=== PATIENT | female | born 1980 | race Caucasian/White ===

== ENCOUNTER 2020-01-09 19:06 | Inpatient (IN) | payer MEDICAID, OTHER ==
[~2020-01-09] VITALS: Ht 175.3 cm; Wt 85.9 kg
--- NOTE | 2020-01-09 19:14 | NUR ---
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
--- NOTE | 2020-01-09 19:28 | NUR ---
PT A&OX4, RESP EVEN & UNLABORED, PT JAUNDICED. STATES "I WAS GETTING BETTER ABOUT THE DRINKING THING, BUT THEN OUR FUR BABY ". A BEER OR TWO A DAY. HAD A SHOT (ETOH) TODAY. DENIES DX HEPATITIS, ABD PAIN, N/V. HX PANCREATITIS, "INFLAMMED LIVER", IRREG MENSTRUAL PERIODS . LAST ORAL INTAKE: FOOD YESTERDAY, FLUID INTAKE TODAY. LMP: 2 MONTHS AGO, "I'M LATE"
[2020-01-09] MEDS ORDERED: TRAZ-96 PO (19:46)
[2020-01-09 20:06] LABS: BASOPHILS # (AUTO) 0.03 x10^3/uL (0-0.1); BASOPHILS % (AUTO) 0 % (0-1); EOSINOPHILS # (AUTO) 0.11 x10^3/uL (0-0.4); EOSINOPHILS % (AUTO) 1 % (1-7); LYMPHOCYTES # (AUTO) 0.79 x10^3/uL (1-3.4); LYMPHOCYTES % (AUTO) 9 % (22-44); MD NO; MEAN CORPUSCULAR HEMOGLOBIN 34.2 pg (27.0-34.8); MEAN PLATELET VOLUME 8.8 fL (7.4-10.4); MONOCYTES # (AUTO) 0.64 x10^3/uL (0.2-0.8); MONOCYTES % (AUTO) 8 % (2-9); NEUTROPHILS # (AUTO) 6.92 x10^3/uL (1.8-6.8); NEUTROPHILS % (AUTO) 82 % (42-75); PLATELET COUNT 165 x10^3/uL (130-400); RED BLOOD COUNT 4.14 x10^6/uL (3.82-5.3); RED CELL DISTRIBUTION WIDTH 17.2 % (9.6-15.2)
[2020-01-09 20:20] LABS: ALANINE AMINOTRANSFERASE 85 U/L (12-78); ALBUMIN 1.8 g/dL (3.4-5.0); ANION GAP 16 mmol/L (5-15); CALCIUM 8.5 mg/dL (8.5-10.1); CHLORIDE 91 mmol/L (98-107)
[2020-01-09 20:26] LABS: ALKALINE PHOSPHATASE 299 U/L (45-117); BILIRUBIN,INDIRECT 4.1 mg/dL (0.0-2.0)
[2020-01-09 20:30] LABS: CREATININE 0.79 mg/dL (0.55-1.02); TOTAL PROTEIN 6.9 g/dL (6.4-8.2)
[2020-01-09 20:39] LABS: BILIRUBIN, DIRECT 20.8 mg/dL (0.1-0.2); BILIRUBIN,TOTAL 24.9 mg/dL (0.2-1.0)
--- NOTE | 2020-01-09 20:39 | NUR ---
PT WAS AMBULATORY TO & FROM [facility] W/OUT INCIDENT; GAIT STEADY. VOIDED BROWNISH SPECIMEN PROVIDED.
--- NOTE | 2020-01-09 20:48 | NUR ---
CALLED CT DEPT RE: 22G IV. PER LUZ MARINA, IV OK FOR CURRENTLY ORDERED CT.
[2020-01-09] MEDS ORDERED: POTASSIUM CHLORIDE 40 MEQ in SODIUM CHLORIDE 0.9% 1,000 ML IV ONE ×2 (20:51→22:11)
[2020-01-09] MEDS ORDERED: POTASSIUM CHLORIDE 20 MEQ TAB.ER.PRT PO ONE (21:00)
--- NOTE | 2020-01-09 21:04 | NUR ---
PT REPORT TO [facility]. PT CARE TRANSFERRED.
[2020-01-09] MEDS ORDERED: NS + 40MEQ KCL 1,000 ML IV ONE (21:19)
[2020-01-09] MEDS ORDERED: POTASSIUM CHLORIDE 20 MEQ TAB.ER.PRT ONE (21:20)
[2020-01-09] MEDS ORDERED: OMNIPAQUE 350 MG/ML, 100ML BOTTLE ONE (21:20)
[2020-01-09] MEDS ORDERED: SODIUM CHLORIDE FLUSH 10ML SYR IVF PRN (22:30)
[2020-01-09 22:35] LABS: INTERNATIONAL NORMALIZED RATIO 1.64 (0.93-1.1)
[2020-01-09 23:46] VITALS: BP 117/82
[2020-01-09] MEDS: CEFTRIAXONE PMX 1GM/50ML 50 ML IV SCH (23:54)
[2020-01-10] MEDS ORDERED: THIAMINE 200 MG in SODIUM CHLORIDE 0.9% 50 ML IV ONE
[2020-01-10 00:24] VITALS: BP 119/80
[2020-01-10 01:06] LABS: AMPHETAMINE SCREEN, URINE Negative (Negative); BARBITURATE SCREEN, URINE Negative (Negative); BENZODIAZEPINE SCREEN, URINE Negative (Negative); CANNABINOID SCREEN, URINE Positive (Negative); COCAINE SCREEN, URINE Negative (Negative); METHADONE SCREEN, URINE Negative (Negative); OPIATE SCREEN, URINE Negative (Negative)
[2020-01-10] MEDS ORDERED: NICOTINE 14MG/24 HR PATCH.TD24 ONE (01:28)
[2020-01-10] MEDS ORDERED: TRAZODONE 50MG TABLET ONE (01:28)
[2020-01-10] MEDS: TRAZODONE 50MG TABLET PO PRN ×2 (01:30→21:52)
[2020-01-10] MEDS: NICOTINE 14MG/24 HR PATCH.TD24 TD SCH (01:30)
[2020-01-10] MEDS ORDERED: DIAZEPAM 10 MG TABLET PO SCH (02:30)
[2020-01-10] MEDS ORDERED: LORazepam 2 MG/ML, 1ML IV PRN ×4 (02:30)
[2020-01-10] MEDS ORDERED: FOLIC ACID 1 MG TABLET PO ONE (02:30)
[2020-01-10 05:14] LABS: BASOPHILS # (AUTO) 0.02 x10^3/uL (0-0.1); BASOPHILS % (AUTO) 0 % (0-1); EOSINOPHILS # (AUTO) 0.06 x10^3/uL (0-0.4); EOSINOPHILS % (AUTO) 1 % (1-7); LYMPHOCYTES # (AUTO) 1.57 x10^3/uL (1-3.4); LYMPHOCYTES % (AUTO) 20 % (22-44); MD NO; MEAN CORPUSCULAR HEMOGLOBIN 34.3 pg (27.0-34.8); MEAN PLATELET VOLUME 9.1 fL (7.4-10.4); MONOCYTES # (AUTO) 0.59 x10^3/uL (0.2-0.8); MONOCYTES % (AUTO) 7 % (2-9); NEUTROPHILS # (AUTO) 5.74 x10^3/uL (1.8-6.8); NEUTROPHILS % (AUTO) 72 % (42-75); PLATELET COUNT 140 x10^3/uL (130-400); RED BLOOD COUNT 3.42 x10^6/uL (3.82-5.3); RED CELL DISTRIBUTION WIDTH 16.8 % (9.6-15.2)
[2020-01-10 05:25] LABS: ALBUMIN 1.5 g/dL (3.4-5.0); ANION GAP 10 mmol/L (5-15); CHLORIDE 96 mmol/L (98-107)
[2020-01-10 05:29] LABS: ALANINE AMINOTRANSFERASE 73 U/L (12-78); ALKALINE PHOSPHATASE 240 U/L (45-117)
[2020-01-10 05:32] LABS: CREATININE 0.71 mg/dL (0.55-1.02)
[2020-01-10 05:33] LABS: TOTAL PROTEIN 5.8 g/dL (6.4-8.2)
[2020-01-10 05:34] LABS: BILIRUBIN,TOTAL 20.9 mg/dL (0.2-1.0)
[2020-01-10 07:40] VITALS: BP 114/73
[2020-01-10] MEDS: MULTIVITAMINS/MINERALS TABLET PO SCH (08:35)
[2020-01-10] MEDS: DIAZEPAM 10 MG TABLET PO SCH ×3 (11:05→22:34)
[2020-01-10] MEDS ORDERED: POTASSIUM CHLORIDE 20 MEQ TAB.ER.PRT ONE (11:07)
[2020-01-10] MEDS: POTASSIUM CHLORIDE 20 MEQ TAB.ER.PRT PO SCH ×2 (11:08→17:21)
[2020-01-10 12:35] VITALS: BP 127/82
[2020-01-10] MEDS: POTASSIUM CHLORIDE 20 MEQ in SODIUM CHLORIDE 0.9% 1,000 ML IV SCH (14:42)
[2020-01-10 18:41] VITALS: BP 119/78
[2020-01-10] MEDS: CEFTRIAXONE PMX 1GM/50ML 50 ML IV SCH (23:59)
[2020-01-11 01:34] VITALS: BP 110/72
[2020-01-11] MEDS: NICOTINE 14MG/24 HR PATCH.TD24 TD SCH (01:56)
[2020-01-11] MEDS ORDERED: DIAZEPAM 5 MG TABLET PO SCH (02:30)
[2020-01-11 05:02] LABS: BASOPHILS # (AUTO) 0.02 x10^3/uL (0-0.1); BASOPHILS % (AUTO) 0 % (0-1); EOSINOPHILS # (AUTO) 0.02 x10^3/uL (0-0.4); EOSINOPHILS % (AUTO) 0 % (1-7); LYMPHOCYTES % (AUTO) 20 % (22-44); MD NO; MEAN CORPUSCULAR HEMOGLOBIN 34.3 pg (27.0-34.8); MEAN CORPUSCULAR HGB CONC 33.7 g/dL (32.4-35.8); MEAN PLATELET VOLUME 9.3 fL (7.4-10.4); MONOCYTES # (AUTO) 0.45 x10^3/uL (0.2-0.8); MONOCYTES % (AUTO) 6 % (2-9); NEUTROPHILS # (AUTO) 5.99 x10^3/uL (1.8-6.8); NEUTROPHILS % (AUTO) 74 % (42-75); PLATELET COUNT 138 x10^3/uL (130-400); RED BLOOD COUNT 3.66 x10^6/uL (3.82-5.3); RED CELL DISTRIBUTION WIDTH 17.5 % (9.6-15.2)
[2020-01-11 05:09] LABS: ALBUMIN 1.6 g/dL (3.4-5.0); ANION GAP 8 mmol/L (5-15); CALCIUM 8.2 mg/dL (8.5-10.1); CHLORIDE 96 mmol/L (98-107)
[2020-01-11 05:13] LABS: ALANINE AMINOTRANSFERASE 72 U/L (12-78); ALKALINE PHOSPHATASE 249 U/L (45-117)
[2020-01-11] MEDS: POTASSIUM CHLORIDE 20 MEQ in SODIUM CHLORIDE 0.9% 1,000 ML IV SCH ×2 (05:15→18:01)
[2020-01-11 05:17] LABS: CREATININE 0.75 mg/dL (0.55-1.02); TOTAL PROTEIN 6.1 g/dL (6.4-8.2)
[2020-01-11] MEDS: DIAZEPAM 5 MG TABLET PO SCH ×4 (05:18→22:54)
[2020-01-11 05:19] LABS: BILIRUBIN,TOTAL 23.7 mg/dL (0.2-1.0)
[2020-01-11 06:51] VITALS: BP 105/67
[2020-01-11] MEDS: MULTIVITAMINS/MINERALS TABLET PO SCH (10:27)
[2020-01-11] MEDS: THIAMINE 100 MG in DEXTROSE 5% 50 ML IVPB SCH (10:29)
[2020-01-11] MEDS: POTASSIUM CHLORIDE 20 MEQ TAB.ER.PRT PO SCH ×2 (10:29→16:58)
[2020-01-11] MEDS: PENTOXIFYLLINE 400 MG TABLET.ER PO SCH ×3 (12:00→20:45)
[2020-01-11 12:50] VITALS: BP 114/78
[2020-01-11] MEDS ORDERED: POTASSIUM CHLORIDE 20 MEQ TAB.ER.PRT PO SCH (17:00)
[2020-01-11 17:23] LABS: ANA SCREEN NEGATIVE (Negative)
[2020-01-11 18:39] VITALS: BP 127/85
[2020-01-12] MEDS: CEFTRIAXONE PMX 1GM/50ML 50 ML IV SCH (00:07)
[2020-01-12 01:02] VITALS: BP 132/93
[2020-01-12] MEDS: NICOTINE 14MG/24 HR PATCH.TD24 TD SCH (01:07)
[2020-01-12] MEDS: TRAZODONE 50MG TABLET PO PRN (02:16)
[2020-01-12 05:06] LABS: ALBUMIN 1.5 g/dL (3.4-5.0); ANION GAP 8 mmol/L (5-15); CHLORIDE 101 mmol/L (98-107)
[2020-01-12 05:09] LABS: ALANINE AMINOTRANSFERASE 59 U/L (12-78); ALKALINE PHOSPHATASE 220 U/L (45-117)
[2020-01-12 05:11] LABS: CREATININE 0.68 mg/dL (0.55-1.02); TOTAL PROTEIN 5.7 g/dL (6.4-8.2)
[2020-01-12 05:12] LABS: BILIRUBIN,TOTAL 23.8 mg/dL (0.2-1.0)
[2020-01-12 05:20] LABS: BASOPHILS # (AUTO) 0.01 x10^3/uL (0-0.1); BASOPHILS % (AUTO) 0 % (0-1); EOSINOPHILS % (AUTO) 1 % (1-7); LYMPHOCYTES # (AUTO) 1.43 x10^3/uL (1-3.4); LYMPHOCYTES % (AUTO) 13 % (22-44); MD NO; MEAN CORPUSCULAR HEMOGLOBIN 34.1 pg (27.0-34.8); MEAN CORPUSCULAR HGB CONC 33.2 g/dL (32.4-35.8); MEAN PLATELET VOLUME 9.5 fL (7.4-10.4); MONOCYTES # (AUTO) 0.79 x10^3/uL (0.2-0.8); MONOCYTES % (AUTO) 7 % (2-9); NEUTROPHILS % (AUTO) 78 % (42-75); PLATELET COUNT 124 x10^3/uL (130-400); RED BLOOD COUNT 3.43 x10^6/uL (3.82-5.3); RED CELL DISTRIBUTION WIDTH 17.3 % (9.6-15.2)
[2020-01-12] MEDS: DIAZEPAM 5 MG TABLET PO SCH ×4 (05:28→23:08)
[2020-01-12 07:20] VITALS: BP 119/80
[2020-01-12] MEDS: POTASSIUM CHLORIDE 20 MEQ in SODIUM CHLORIDE 0.9% 1,000 ML IV SCH (09:14)
[2020-01-12] MEDS: THIAMINE 100 MG in DEXTROSE 5% 50 ML IVPB SCH (09:14)
[2020-01-12] MEDS: PENTOXIFYLLINE 400 MG TABLET.ER PO SCH ×3 (09:16→20:43)
[2020-01-12] MEDS: POTASSIUM CHLORIDE 20 MEQ TAB.ER.PRT PO SCH ×2 (09:16→17:02)
[2020-01-12] MEDS: MULTIVITAMINS/MINERALS TABLET PO SCH (09:16)
[2020-01-12] MEDS: LORazepam 2 MG/ML, 1ML IV PRN (09:39)
[2020-01-12] MEDS ORDERED: MAGNESIUM SULFATE PMX 2GM/50ML 50 ML IV ONE (10:00)
[2020-01-12 13:07] VITALS: BP 130/82
[2020-01-12 18:31] VITALS: BP 115/77
[2020-01-12] MEDS ORDERED: CALCIUM CARBONATE 500 MG TAB.CHEW ONE (19:12)
[2020-01-12] MEDS: CALCIUM CARBONATE 500 MG TAB.CHEW PO PRN (19:14)
[2020-01-12 20:23] LABS: MICROSCOPIC NOT IND
[2020-01-13] MEDS: CEFTRIAXONE PMX 1GM/50ML 50 ML IV SCH (00:10)
[2020-01-13] MEDS: NICOTINE 14MG/24 HR PATCH.TD24 TD SCH (00:10)
[2020-01-13 00:37] VITALS: BP 108/72
[2020-01-13] MEDS: CALCIUM CARBONATE 500 MG TAB.CHEW PO PRN (01:06)
[2020-01-13 05:01] LABS: BASOPHILS # (AUTO) 0.05 x10^3/uL (0-0.1); BASOPHILS % (AUTO) 0 % (0-1); EOSINOPHILS # (AUTO) 0.05 x10^3/uL (0-0.4); EOSINOPHILS % (AUTO) 1 % (1-7); LYMPHOCYTES # (AUTO) 1.53 x10^3/uL (1-3.4); LYMPHOCYTES % (AUTO) 15 % (22-44); MD NO; MEAN CORPUSCULAR HEMOGLOBIN 34.6 pg (27.0-34.8); MEAN CORPUSCULAR HGB CONC 33.4 g/dL (32.4-35.8); MEAN PLATELET VOLUME 9.5 fL (7.4-10.4); MONOCYTES # (AUTO) 0.86 x10^3/uL (0.2-0.8); MONOCYTES % (AUTO) 8 % (2-9); NEUTROPHILS # (AUTO) 7.96 x10^3/uL (1.8-6.8); NEUTROPHILS % (AUTO) 76 % (42-75); PLATELET COUNT 121 x10^3/uL (130-400); RED BLOOD COUNT 3.46 x10^6/uL (3.82-5.3); RED CELL DISTRIBUTION WIDTH 17.6 % (9.6-15.2)
[2020-01-13 05:16] LABS: ALANINE AMINOTRANSFERASE 52 U/L (12-78); ALBUMIN 1.5 g/dL (3.4-5.0); ALKALINE PHOSPHATASE 203 U/L (45-117); ANION GAP 7 mmol/L (5-15); CALCIUM 8.2 mg/dL (8.5-10.1); CHLORIDE 102 mmol/L (98-107)
[2020-01-13 05:18] LABS: CREATININE 0.64 mg/dL (0.55-1.02)
[2020-01-13 05:19] LABS: BILIRUBIN,TOTAL 24.7 mg/dL (0.2-1.0); TOTAL PROTEIN 5.5 g/dL (6.4-8.2)
[2020-01-13 07:28] VITALS: BP 102/69
[2020-01-13] MEDS: POTASSIUM CHLORIDE 20 MEQ TAB.ER.PRT PO SCH ×4 (09:00→20:33)
[2020-01-13] MEDS: PENTOXIFYLLINE 400 MG TABLET.ER PO SCH ×3 (09:21→20:34)
[2020-01-13] MEDS: MULTIVITAMINS/MINERALS TABLET PO SCH (09:21)
[2020-01-13] MEDS: THIAMINE 100 MG in DEXTROSE 5% 50 ML IVPB SCH (09:35)
[2020-01-13] MEDS: FOLIC ACID 1 MG TABLET PO SCH (10:53)
[2020-01-13] MEDS: ENOXAPARIN 40 MG/0.4 ML SQ SCH (10:53)
[2020-01-13 18:35] VITALS: BP 130/90
[2020-01-13] MEDS: TRAZODONE 50MG TABLET PO PRN (20:34)
[2020-01-14 00:36] VITALS: BP 127/75
[2020-01-14] MEDS: NICOTINE 14MG/24 HR PATCH.TD24 TD SCH (01:20)
[2020-01-14 04:42] LABS: BASOPHILS # (AUTO) 0.04 x10^3/uL (0-0.1); BASOPHILS % (AUTO) 0 % (0-1); EOSINOPHILS # (AUTO) 0.14 x10^3/uL (0-0.4); EOSINOPHILS % (AUTO) 1 % (1-7); LYMPHOCYTES # (AUTO) 1.59 x10^3/uL (1-3.4); LYMPHOCYTES % (AUTO) 13 % (22-44); MD NO; MEAN CORPUSCULAR HEMOGLOBIN 34.5 pg (27.0-34.8); MEAN CORPUSCULAR HGB CONC 33.2 g/dL (32.4-35.8); MEAN PLATELET VOLUME 9.9 fL (7.4-10.4); MONOCYTES # (AUTO) 1.09 x10^3/uL (0.2-0.8); MONOCYTES % (AUTO) 9 % (2-9); NEUTROPHILS # (AUTO) 9.04 x10^3/uL (1.8-6.8); NEUTROPHILS % (AUTO) 76 % (42-75); PLATELET COUNT 140 x10^3/uL (130-400); RED BLOOD COUNT 3.79 x10^6/uL (3.82-5.3); RED CELL DISTRIBUTION WIDTH 17.5 % (9.6-15.2)
[2020-01-14 04:43] LABS: CHLORIDE 102 mmol/L (98-107)
[2020-01-14 05:02] LABS: ALANINE AMINOTRANSFERASE 53 U/L (12-78); ALBUMIN 1.7 g/dL (3.4-5.0); ALKALINE PHOSPHATASE 227 U/L (45-117); ANION GAP 9 mmol/L (5-15)
[2020-01-14 05:10] LABS: CREATININE 0.78 mg/dL (0.55-1.02); TOTAL PROTEIN 6.3 g/dL (6.4-8.2)
[2020-01-14 05:11] LABS: BILIRUBIN,TOTAL 25.7 mg/dL (0.2-1.0)
[2020-01-14 07:01] VITALS: BP 138/87
[2020-01-14] MEDS: THIAMINE 100MG TABLET PO SCH (08:31)
[2020-01-14] MEDS: POTASSIUM CHLORIDE 20 MEQ TAB.ER.PRT PO SCH ×2 (08:31→15:40)
[2020-01-14] MEDS: MULTIVITAMINS/MINERALS TABLET PO SCH (08:31)
[2020-01-14] MEDS: PENTOXIFYLLINE 400 MG TABLET.ER PO SCH ×3 (08:31→21:11)
[2020-01-14] MEDS: FOLIC ACID 1 MG TABLET PO SCH (08:31)
[2020-01-14] MEDS: ENOXAPARIN 40 MG/0.4 ML SQ SCH (08:32)
[2020-01-14 12:06] VITALS: BP 109/70
[2020-01-14] MEDS: CALCIUM CARBONATE 500 MG TAB.CHEW PO PRN (12:14)
[2020-01-14 12:38] LABS: CLOSTRIDIUM DIFFICILE ANTIGEN NEGATIVE; CLOSTRIDIUM DIFFICILE TOXIN NEGATIVE (Negative)
[2020-01-14] MEDS ORDERED: POTASSIUM PHOSPHATE 44 MEQ in SODIUM CHLORIDE 0.9% 500 ML IV ONE (14:00)
[2020-01-14] MEDS: LACTOBACILLUS CHEW TABLET PO SCH ×2 (15:39→21:11)
[2020-01-14 18:53] VITALS: BP 128/82
[2020-01-14] MEDS: TRAZODONE 50MG TABLET PO PRN (21:11)
[2020-01-15 01:01] VITALS: BP 120/83
[2020-01-15] MEDS: NICOTINE 14MG/24 HR PATCH.TD24 TD SCH (01:33)
[2020-01-15] MEDS: CALCIUM CARBONATE 500 MG TAB.CHEW PO PRN (03:49)
[2020-01-15 04:22] LABS: ALANINE AMINOTRANSFERASE 42 U/L (12-78); ALBUMIN 1.5 g/dL (3.4-5.0); ANION GAP 10 mmol/L (5-15); CALCIUM 8.5 mg/dL (8.5-10.1); CHLORIDE 105 mmol/L (98-107)
[2020-01-15 04:28] LABS: BASOPHILS % (AUTO) 0 % (0-1); EOSINOPHILS # (AUTO) 0.16 x10^3/uL (0-0.4); EOSINOPHILS % (AUTO) 1 % (1-7); LYMPHOCYTES # (AUTO) 1.56 x10^3/uL (1-3.4); LYMPHOCYTES % (AUTO) 13 % (22-44); MD NO; MEAN CORPUSCULAR HEMOGLOBIN 34.5 pg (27.0-34.8); MEAN CORPUSCULAR HGB CONC 33.2 g/dL (32.4-35.8); MEAN PLATELET VOLUME 9.8 fL (7.4-10.4); MONOCYTES # (AUTO) 0.97 x10^3/uL (0.2-0.8); MONOCYTES % (AUTO) 8 % (2-9); NEUTROPHILS # (AUTO) 9.27 x10^3/uL (1.8-6.8); NEUTROPHILS % (AUTO) 78 % (42-75); PLATELET COUNT 131 x10^3/uL (130-400); RED BLOOD COUNT 3.56 x10^6/uL (3.82-5.3); RED CELL DISTRIBUTION WIDTH 17.9 % (9.6-15.2)
[2020-01-15 04:34] LABS: ALKALINE PHOSPHATASE 202 U/L (45-117)
[2020-01-15 05:22] LABS: CREATININE 0.73 mg/dL (0.55-1.02)
[2020-01-15 05:23] LABS: BILIRUBIN,TOTAL 22.9 mg/dL (0.2-1.0); TOTAL PROTEIN 5.5 g/dL (6.4-8.2)
[2020-01-15] MEDS: LACTOBACILLUS CHEW TABLET PO SCH ×4 (05:42→20:07)
[2020-01-15 06:46] VITALS: BP 123/74
[2020-01-15] MEDS ORDERED: POTASSIUM CHLORIDE 40 MEQ in SODIUM CHLORIDE 0.9% 500 ML IV ONE (09:00)
[2020-01-15] MEDS: THIAMINE 100MG TABLET PO SCH (09:00)
[2020-01-15] MEDS ORDERED: POTASSIUM CHLORIDE 20 MEQ TAB.ER.PRT PO ONE ×2 (09:00→11:00)
[2020-01-15] MEDS: MULTIVITAMINS/MINERALS TABLET PO SCH (09:34)
[2020-01-15] MEDS: FOLIC ACID 1 MG TABLET PO SCH (09:34)
[2020-01-15] MEDS: PENTOXIFYLLINE 400 MG TABLET.ER PO SCH ×3 (09:35→20:07)
[2020-01-15] MEDS: CEFTRIAXONE PMX 2GM/50ML 50 ML IV SCH (09:35)
[2020-01-15] MEDS: ENOXAPARIN 40 MG/0.4 ML SQ SCH (11:25)
[2020-01-15 12:51] VITALS: BP 132/91
[2020-01-15] MEDS: METRONIDAZOLE PMX 500MG/100ML 100 ML IV SCH ×2 (15:00→23:01)
[2020-01-15] MEDS: hydrOXyzine 10MG TABLET PO PRN ×2 (15:01→20:06)
[2020-01-15] MEDS: SODIUM CHLORIDE 0.9% 1,000 ML IV SCH (15:01)
[2020-01-15 19:36] VITALS: BP 122/84
[2020-01-15] MEDS: TRAZODONE 50MG TABLET PO PRN (20:06)
[2020-01-16 01:18] VITALS: BP 123/86
[2020-01-16] MEDS: NICOTINE 14MG/24 HR PATCH.TD24 TD SCH (01:23)
[2020-01-16] MEDS: SODIUM CHLORIDE 0.9% 1,000 ML IV SCH (04:15)
[2020-01-16] MEDS: LACTOBACILLUS CHEW TABLET PO SCH ×4 (05:07→20:09)
[2020-01-16 06:20] VITALS: BP 109/70
[2020-01-16] MEDS: METRONIDAZOLE PMX 500MG/100ML 100 ML IV SCH ×3 (07:21→23:09)
[2020-01-16] MEDS: MULTIVITAMINS/MINERALS TABLET PO SCH (08:25)
[2020-01-16] MEDS: THIAMINE 100MG TABLET PO SCH (08:26)
[2020-01-16] MEDS: PENTOXIFYLLINE 400 MG TABLET.ER PO SCH ×3 (08:26→20:09)
[2020-01-16] MEDS: FOLIC ACID 1 MG TABLET PO SCH (08:26)
[2020-01-16] MEDS: CEFTRIAXONE PMX 2GM/50ML 50 ML IV SCH (08:26)
[2020-01-16 09:08] LABS: BASOPHILS # (AUTO) 0.05 x10^3/uL (0-0.1); BASOPHILS % (AUTO) 1 % (0-1); EOSINOPHILS # (AUTO) 0.05 x10^3/uL (0-0.4); EOSINOPHILS % (AUTO) 1 % (1-7); LYMPHOCYTES # (AUTO) 1.07 x10^3/uL (1-3.4); LYMPHOCYTES % (AUTO) 11 % (22-44); MD NO; MEAN CORPUSCULAR HEMOGLOBIN 34.6 pg (27.0-34.8); MEAN CORPUSCULAR HGB CONC 33.1 g/dL (32.4-35.8); MEAN PLATELET VOLUME 9.2 fL (7.4-10.4); MONOCYTES # (AUTO) 0.99 x10^3/uL (0.2-0.8); MONOCYTES % (AUTO) 10 % (2-9); NEUTROPHILS # (AUTO) 7.95 x10^3/uL (1.8-6.8); NEUTROPHILS % (AUTO) 79 % (42-75); PLATELET COUNT 142 x10^3/uL (130-400); RED BLOOD COUNT 3.55 x10^6/uL (3.82-5.3); RED CELL DISTRIBUTION WIDTH 17.5 % (9.6-15.2)
[2020-01-16 09:29] LABS: CREATININE 0.73 mg/dL (0.55-1.02); TOTAL PROTEIN 5.3 g/dL (6.4-8.2)
[2020-01-16 09:33] LABS: ANION GAP 8 mmol/L (5-15); CALCIUM 8.6 mg/dL (8.5-10.1); CHLORIDE 107 mmol/L (98-107)
[2020-01-16 09:34] LABS: ALANINE AMINOTRANSFERASE 37 U/L (12-78); ALBUMIN 1.4 g/dL (3.4-5.0); ALKALINE PHOSPHATASE 192 U/L (45-117)
[2020-01-16 09:35] LABS: BILIRUBIN,TOTAL 23.1 mg/dL (0.2-1.0)
[2020-01-16] MEDS: ENOXAPARIN 40 MG/0.4 ML SQ SCH (11:03)
[2020-01-16 12:05] VITALS: BP 98/67
[2020-01-16] MEDS ORDERED: POTASSIUM CHLORIDE 40 MEQ in SODIUM CHLORIDE 0.9% 500 ML IV ONE (14:30)
[2020-01-16] MEDS ORDERED: POTASSIUM CHLORIDE 20 MEQ TAB.ER.PRT PO ONE ×2 (14:30→16:30)
[2020-01-16 19:00] VITALS: BP 120/81
[2020-01-16] MEDS: TRAZODONE 50MG TABLET PO PRN (20:09)
[2020-01-16] MEDS: hydrOXyzine 10MG TABLET PO PRN (20:10)
[2020-01-17] MEDS: NICOTINE 14MG/24 HR PATCH.TD24 TD SCH (00:45)
[2020-01-17 02:00] VITALS: BP 126/84
[2020-01-17] MEDS: LACTOBACILLUS CHEW TABLET PO SCH ×4 (06:26→19:57)
[2020-01-17] MEDS: METRONIDAZOLE PMX 500MG/100ML 100 ML IV SCH ×3 (06:27→22:43)
[2020-01-17 06:30] VITALS: BP 112/74
[2020-01-17] MEDS: hydrOXyzine 10MG TABLET PO PRN ×3 (06:34→19:57)
[2020-01-17] MEDS: PENTOXIFYLLINE 400 MG TABLET.ER PO SCH ×3 (08:46→19:57)
[2020-01-17] MEDS: FOLIC ACID 1 MG TABLET PO SCH (08:46)
[2020-01-17] MEDS: THIAMINE 100MG TABLET PO SCH (08:46)
[2020-01-17] MEDS: CEFTRIAXONE PMX 2GM/50ML 50 ML IV SCH (08:47)
[2020-01-17] MEDS: MULTIVITAMINS/MINERALS TABLET PO SCH (08:47)
[2020-01-17 10:24] LABS: CALCIUM 8.5 mg/dL (8.5-10.1); CHLORIDE 104 mmol/L (98-107)
[2020-01-17 10:35] LABS: ANION GAP 6 mmol/L (5-15); CREATININE 0.76 mg/dL (0.55-1.02)
[2020-01-17] MEDS: ENOXAPARIN 40 MG/0.4 ML SQ SCH (10:38)
[2020-01-17] MEDS ORDERED: POTASSIUM CHLORIDE 80 MEQ in SODIUM CHLORIDE 0.9% 1,000 ML IV ONE (10:54)
[2020-01-17] MEDS ORDERED: POTASSIUM CHLORIDE 40 MEQ in SODIUM CHLORIDE 0.9% 500 ML IV ONE (11:00)
[2020-01-17] MEDS: POTASSIUM CHLORIDE 20 MEQ TAB.ER.PRT PO SCH ×2 (11:08→16:18)
[2020-01-17 12:10] VITALS: BP 118/78
[2020-01-17] MEDS ORDERED: POTASSIUM CHLORIDE 20 MEQ TAB.ER.PRT PO SCH (17:00)
[2020-01-17 18:36] VITALS: BP 117/81
[2020-01-17] MEDS: TRAZODONE 50MG TABLET PO PRN (19:57)
[2020-01-17] MEDS: CALCIUM CARBONATE 500 MG TAB.CHEW PO PRN (22:51)
[2020-01-18] MEDS: NICOTINE 14MG/24 HR PATCH.TD24 TD SCH ×2 (01:07→23:39)
[2020-01-18 01:10] VITALS: BP 112/76
[2020-01-18] MEDS: hydrOXyzine 10MG TABLET PO PRN ×2 (05:18→18:26)
[2020-01-18] MEDS: LACTOBACILLUS CHEW TABLET PO SCH ×5 (05:18→23:30)
[2020-01-18] MEDS: METRONIDAZOLE PMX 500MG/100ML 100 ML IV SCH ×3 (06:26→23:30)
[2020-01-18 06:58] VITALS: BP 124/84
[2020-01-18] MEDS: LORazepam 2 MG/ML, 1ML IV PRN (09:22)
[2020-01-18] MEDS: POTASSIUM CHLORIDE 20 MEQ TAB.ER.PRT PO SCH ×2 (09:30→16:30)
[2020-01-18] MEDS: CEFTRIAXONE PMX 2GM/50ML 50 ML IV SCH (09:30)
[2020-01-18] MEDS: THIAMINE 100MG TABLET PO SCH (09:31)
[2020-01-18] MEDS: FOLIC ACID 1 MG TABLET PO SCH (09:31)
[2020-01-18] MEDS: MULTIVITAMINS/MINERALS TABLET PO SCH (09:32)
[2020-01-18] MEDS: PENTOXIFYLLINE 400 MG TABLET.ER PO SCH ×3 (09:33→20:39)
[2020-01-18] MEDS ORDERED: POTASSIUM CHLORIDE 20 MEQ in SODIUM CHLORIDE 0.9% 250 ML IV ONE (10:00)
[2020-01-18] MEDS: ENOXAPARIN 40 MG/0.4 ML SQ SCH (11:00)
[2020-01-18 12:33] LABS: ALBUMIN 1.4 g/dL (3.4-5.0); ANION GAP 6 mmol/L (5-15); CALCIUM 8.7 mg/dL (8.5-10.1); CHLORIDE 105 mmol/L (98-107)
[2020-01-18 12:37] LABS: CREATININE 0.71 mg/dL (0.55-1.02)
[2020-01-18] MEDS: MULTIVITS,STRESS FORMULA 1 TABLET PO SCH (12:37)
[2020-01-18] MEDS: CHOLECALCIFEROL 5,000u TAB PO SCH (12:38)
[2020-01-18] MEDS: ZINC SULFATE 220 MG CAPSULE PO SCH (12:38)
[2020-01-18 13:20] VITALS: BP 111/74
[2020-01-18] MEDS: ASCORBIC ACID 500 MG TABLET PO SCH (16:35)
[2020-01-18 18:49] VITALS: BP 115/78
[2020-01-18] MEDS: TRAZODONE 50MG TABLET PO PRN (20:40)
[2020-01-19] MEDS: hydrOXyzine 10MG TABLET PO PRN ×2 (02:10→11:24)
[2020-01-19 04:29] VITALS: BP 125/86
[2020-01-19] MEDS: LACTOBACILLUS CHEW TABLET PO SCH ×2 (06:01→11:24)
[2020-01-19] MEDS: METRONIDAZOLE PMX 500MG/100ML 100 ML IV SCH (07:58)
[2020-01-19] MEDS: ASCORBIC ACID 500 MG TABLET PO SCH (08:38)
[2020-01-19] MEDS: THIAMINE 100MG TABLET PO SCH (08:38)
[2020-01-19] MEDS: POTASSIUM CHLORIDE 20 MEQ TAB.ER.PRT PO SCH (08:38)
[2020-01-19] MEDS: CHOLECALCIFEROL 5,000u TAB PO SCH (08:39)
[2020-01-19] MEDS: ZINC SULFATE 220 MG CAPSULE PO SCH (08:39)
[2020-01-19] MEDS: MULTIVITAMINS/MINERALS TABLET PO SCH (08:39)
[2020-01-19] MEDS: MULTIVITS,STRESS FORMULA 1 TABLET PO SCH (08:40)
[2020-01-19] MEDS: PENTOXIFYLLINE 400 MG TABLET.ER PO SCH (08:40)
[2020-01-19] MEDS: FOLIC ACID 1 MG TABLET PO SCH (08:40)
[2020-01-19] MEDS: CEFTRIAXONE PMX 2GM/50ML 50 ML IV SCH (08:51)
[2020-01-19 09:05] VITALS: BP 129/91
[2020-01-19] MEDS: ENOXAPARIN 40 MG/0.4 ML SQ SCH (11:00)
[2020-01-19] MEDS ORDERED: MULT1TAB76 PO (11:22)
[2020-01-19] MEDS ORDERED: ASCO500T9 PO (11:22)
[2020-01-19] MEDS ORDERED: ALPR0.5T3 PO (11:22)
[2020-01-19] MEDS ORDERED: PENT400T12 PO (11:22)
[2020-01-19 12:47] VITALS: BP 124/90
[2020-01-19] MEDS ORDERED: FLU VACC QS2020-21(6MOS UP)/PF 60MCG/0.5 ML SYR IM ONE (13:00)
== END 2020-01-19 13:21 | disposition home or self-care (01) | DRG 442 ==
LOC: ED 19:36 → EDIP 22:17 → 4WST 23:14 → DCLOUNGE 01-19 13:15
PROVIDERS: ADMIT Family Medicine; ATTEND Family Medicine
DX: K72.00 Acute and subacute hepatic failure without coma (principal); D68.9 Coagulation defect, unspecified; E87.1 Hypo-osmolality and hyponatremia; K82.8 Other specified diseases of gallbladder; K80.20 Calculus of gallbladder without cholecystitis without obstruction; K70.10 Alcoholic hepatitis without ascites; K76.0 Fatty (change of) liver, not elsewhere classified; F31.9 Bipolar disorder, unspecified; K59.00 Constipation, unspecified; F17.210 Nicotine dependence, cigarettes, uncomplicated; F10.229 Alcohol dependence with intoxication, unspecified; E88.09 Other disorders of plasma-protein metabolism, not elsewhere classified; E87.6 Hypokalemia; E83.42 Hypomagnesemia; D75.89 Other specified diseases of blood and blood-forming organs; E87.70 Fluid overload, unspecified; K52.9 Noninfective gastroenteritis and colitis, unspecified
CPT/HCPCS: 36415; 74177; 74181; 76705; 80048; 80053; 80069; 80074; 80307; 81003; 82140; 82247; 82248; 83516; 83690; 83735; 84100; 84443; 85025; 85610; 85730; 86038; 87040; 87046; 87324; 87427; 90686; 93005; 99285; G0378; J0696; J1650; J3411; J3480; Q9967; J2060; J3475; J7030; J7040; J7050